=== PATIENT | female | born 1965 | race African-American/Black ===

== ENCOUNTER 2018-10-15 17:57 | Inpatient (IN) | payer MEDICARE ==
[2018-10-15 18:13] VITALS: BMI 27.8
--- NOTE | 2018-10-15 19:49 | PDOC ---
History of Present Illness - General Chief Complaint: Nausea/Vomiting Stated Complaint: Nausea Time Seen by Provider: 10/15/18 19:27 History Source: Patient Exam Limitations: No Limitations - History of Present Illness Initial Comments: HPI: 52 y/o female presenting to [facility] ER complaining of bilateral frontal headache and nausea/vomiting since approx. 10 am this morning. Pt states the headache has progressively worsened throughout the day. Endorses blurry vision. Vomited 4 times today; described as nonbloody, nonbilious. Able to drink water. No trouble walking. No history of similar symptoms. Denies trauma. Is concerned the symptoms are related to the glass of wine she drank yesterday. Denies daily drinking. PCP: Does not follow with PCP. Medical Hx: - Pt denies past medical history. Denies prescription medications. Surgical Hx: - Pt denies past surgical history. Past History - Past Medical History Allergies/Adverse Reactions: Allergies Allergy/AdvReac Type Severity Reaction Status Date / Time No Known Allergies Allergy Verified 10/15/18 21:22 Home Medications: Ambulatory Orders NK [No Known Home Medication] 10/15/18 COPD: No Dementia: No HTN: No - Immunization History Immunization Up to Date: No - Suicide/Smoking/Psychosocial Hx Smoking History: Never smoked Have you smoked in the past 12 months: No Information on smoking cessation initiated: No Hx Alcohol Use: No Drug/Substance Use Hx: No Review of Systems - Review of Systems Able to Perform ROS?: Yes Comments:: In addition to that documented in the HPI above, the additional ROS was obtained : Constitutional: Denies fevers or chills Eyes: Endorses vision changes (blurry vision) ENMT: Denies sore throat CV: Denies chest pain Resp: Denies SOB GI: Endorses vomiting. Denies diarrhea : Denies painful urination MSK: Denies recent trauma Skin: Denies new rashes Neuro: Denies new numbness or tingling or weakness Endocrine: Denies polyuria Heme: Denies bleeding or bruising *Physical Exam - Vital Signs Last Vital Signs Temp Pulse Resp BP Pulse Ox 98.4 F 89 16 171/84 H 99 10/15/18 18:09 10/15/18 18:09 10/15/18 18:09 10/15/18 18:09 10/15/18 18:09 - Physical Exam Comments: Constitutional: Well-developed, well-nourished, obese female in no acute distress or obvious discomfort. Found sitting upright on hospital chair. Alert and oriented x4. Answered all questions appropriately and completely. Speech was non-labored, non-pressured. Head: Normocephalic. No obvious external signs of trauma. Eyes: Pupils 3mm and PERRL bilaterally. EOMI. Sclerae white. Conjunctiva moist and not injected. EARS: Hearing grossly intact. NOSE: No nasal discharge. THROAT: Oral cavity and pharynx normal. No inflammation, swelling, exudate, or lesions. Neck: Supple, trachea is midline. No midline tenderness. Cardiovascular: Regular rate and regular rhythm. No murmur, rubs, clicks, or gallops. Peripheral pulses: Radial pulses full. Respiratory: Breathing unlabored. Equal chest rise and fall. Clear to auscultation bilaterally. No stridor, no wheezing, no rhonchi. Gastrointestinal: abdomen is soft, non-tender, non-distended. Neuro: Alert and oriented. Moving all four extremities spontaneously. No focal deficits. Cranial nerves intact. Sensation to all four extremities intact. Upper and lower extremities: proximal and distal strength 5/5. Head Field Hockey Coach strength 5/ 5 - equal and symmetric. Plantar flexion and dorsiflexion 5/5. Intact rapid alternating movements, finger to nose, and heel to ackerman. Gait normal. Skin: Warm, dry, and intact. Psych: Affect: appropriate. Mood: normal. Moderate Sedation - Procedure Monitoring Vital Signs: Procedure Monitoring Vital Signs Temperature 98.4 F 10/15/18 18:09 Pulse Rate 89 10/15/18 18:09 Respiratory Rate 16 10/15/18 18:09 Blood Pressure 171/84 H 10/15/18 18:09 O2 Sat by Pulse Oximetry (%) 99 10/15/18 18:09 ED Treatment Course - LABORATORY CBC & Chemistry Diagram: 10/15/18 20:16 10/15/18 20:16 Medical Decision Making - Medical Decision Making *Reviewed vital signs, nursing notes, and prior visit documentation (if available). 52 y/o female presenting with worsening frontal headache since this AM with nausea/vomiting and blurry vision. No history of similar. No trauma. Hypertensive in triage. Pt denies h/o HTN but has not followed with physician. Neurologically intact on exam. Low suspicion for acute EtOH withdrawal given reported single glass of wine and duration of symptoms. Low suspicion for intracranial lesion given normal neuro exam but given pts age and poor medical follow up will obtain head CT and basic labs. NIH Stroke Scale/Score (NIHSS) on initial interview RESULT SUMMARY: 0 points NIH Stroke Scale INPUTS: 1A: Level of consciousness > 0 = Alert; keenly responsive 1B: Ask month and age > 0 = Both questions right 1C: 'Blink eyes' & 'squeeze hands' > 0 = Performs both tasks 2: Horizontal extraocular movements > 0 = Normal 3: Visual iraheta > 0 = No visual loss 4: Facial palsy > 0 = Normal symmetry 5A: Left arm motor drift > 0 = No drift for 10 seconds 5B: Right arm motor drift > 0 = No drift for 10 seconds 6A: Left leg motor drift > 0 = No drift for 5 seconds 6B: Right leg motor drift > 0 = No drift for 5 seconds 7: Limb Ataxia > 0 = No ataxia 8: Sensation > 0 = Normal; no sensory loss 9: Language/aphasia > 0 = Normal; no aphasia 10: Dysarthria > 0 = Normal 11: Extinction/inattention > 0 = No abnormality CT of Head unremarkable for acute intracranial process. CBC unremarkable for anemia or leukocytosis. CMP unremarkable for electrolyte derangement. LFTs not elevated. BUN and Cr at baseline. eGFR >60. Glucose elevated despite pt reporting poor PO intake today. Will defer to PCP. Troponin not elevated. EKG unremarkable for ectopy. Low suspicion for ACS. Suspect HTN is a chronic and undiagnosed medical problem given age and body habitus with reported poor medical contact. Will also defer to PCP. 00:01 Pt reassessed and found to have acute change in mental status. Alert but disoriented and confused. Slowed speech with word searching. Asking similar questions in rapid succession. RN agrees mental status seems different from initial interview. Ordered UDS to further evaluate. 02:15 UDS howard negative. Pt reassess. Found to be A/Ox4. Returned to baseline. Reports she recalls being confused earlier. Denies using illicit substances or taking any medications other than those dispensed by RN. Re- evaluated by ED Attending, who reports observing the pt transition from baseline to return of slowed mentation and word searching. BP remains elevated. Will trial PO Clonidine. 02:39 Will admit for transient altered mental status with hypertension. Possible hypertensive encephalopathy versus TIA, though symptoms appear to be brief and recurrent in nature. No known HTN diagnosis per pt and no previous records available for comparison. Microblog sent to [facility] for admission. Awaiting call back. 03:05 Telephone consultation with resident Dr. Rodney. Verbally appraised of the pts HPI, ED course, and current plan of management. Will discuss case with attending and Microblog with further. 10/16/18 03:33 Pt to be admitted to telemetry by resident Dr. Rodney for attending Dr. Villagran. BP trended upward. Ordered PO Nifedipine. At mental baseline. *DC/Admit/Observation/Transfer Diagnosis at time of Disposition: Disorientation Headache Qualifiers: Headache type: unspecified Headache chronicity pattern: acute headache Intractability: not intractable Qualified Code(s): R51 - Headache Nausea & vomiting Qualifiers: Vomiting type: unspecified Vomiting Intractability: non-intractable Qualified Code(s): R11.2 - Nausea with vomiting, unspecified Altered mental status, unspecified Qualifiers: Altered mental status type: disorientation Qualified Code(s): R41.0 - Disorientation, unspecified Hypertension Qualifiers: Hypertension type: unspecified Qualified Code(s): I10 - Essential (primary) hypertension - Discharge Dispostion Condition at time of disposition: Stable Decision to Admit order: Yes - Referrals - Patient Instructions - Post Discharge Activity
--- NOTE | 2018-10-15 19:53 | PDOC ---
Attending Attestation - HPI HPI: This patient is a 52 year old female, with,no significant PMHx, who presents with b/l frontal headache, nausea, vomiting. Patient states that her headache began at 10 am and has progressively worsened over the course of the day. She states that her nausea and vomit (4x, nbnb) preceded the headache Denies taking any pain medication today. She states that she has been eating and drinking normally. She does note however that she drank a glass of wine yesterday and states that she doesn't normally drink. She also endorses blurry vision. She denies any abdominal pain, diarrhea. Denies any chest pain or shortness of breath. PCP: none <Queta Rodriguez - Last Filed: 10/15/18 20:28> - Resident Resident Name: Celso Jose - ED Attending Attestation I have performed the following: I have examined & evaluated the patient, The case was reviewed & discussed with the resident, I agree w/resident's findings & plan, Exceptions are as noted - Physicial Exam PE: 10/16/18 01:16 Well-nourished, well-developed 52-year-old female presents to the emergency department because she is concerned about her elevated blood pressure. She also states she's had nausea and vomiting and some visual changes associated with this. Head normocephalic, atraumatic. eyes- tearing,eomi Significant facial flushing noted Eyes pupils are equal and reactive to light and accommodation. Neck supple Lungs clear to auscultation bilaterally CVS regular rate and rhythm S1, S2 Abdomen protuberant, nontender. Extremities no deformities. Skin warm and dry. Neuro patient was alert but confused, appears to be word searching , poor historian . This is a change in mental status since her arrival according to the nurse and resident 10/16/18 01:23 10/16/18 01:50 10/16/18 02:34 IMP TIA,HTN urgency,TONEY plan admit to telemtry - Medical Decision Making 10/16/18 01:51 ct scan head :no acute intracranial pathology pt 's repeat temp=98.4 ekg NSR 74 bpm, inverted t waves in V1,V2,V3 pt states she has no regular physician and her concern is her blood pressure but her behavior is strange and this is a change from her initial presentation , she keeps rubbing her face, her response time to questions is very prolonged- there is concern for her taking synthetic marijuana/esctasy or some other drug of abuse our drug screen for drugs of abuse is negative 10/16/18 01:57 <Dai Zavala - Last Filed: 10/16/18 02:38>
[2018-10-15] MEDS ORDERED: ACETAMINOPHEN 500 MG TABLET (FP) PO ONE (20:11)
[2018-10-15 20:40] LABS: BASO % 0.5 % (0-2.0); EOS % 0.2 % (0-4.5); HEMATOCRIT 43.5 % (32.4-45.2); HEMOGLOBIN 14.9 GM/dL (10.7-15.3); LYMPH % 26.9 % (8-40); MCH 29.6 pg (25.7-33.7); MCHC 34.1 g/dl (32.0-36.0); MEAN CELL VOLUME 86.7 fl (80-96); MONO % 4.2 % (3.8-10.2); NEUT % 68.2 % (42.8-82.8); PLATELET COUNT 230 K/MM3 (134-434); RBC 5.02 M/mm3 (3.60-5.2); RDW 14.3 % (11.6-15.6); WHITE BLOOD COUNT 6.3 K/mm3 (4.0-10.0)
[2018-10-15] MEDS ORDERED: ACETAMINOPHEN 325 MG TABLET (FP) ONE (21:11)
[2018-10-15 21:24] LABS: ALBUMIN 4.2 g/dl (3.4-5.0); ALK PHOS 138 U/L (45-117); ANION GAP 10 MMOL/L (8-16); BILIRUBIN,TOTAL 0.4 mg/dL (0.2-1); BLOOD UREA NITROGEN 9 mg/dL (7-18); CHLORIDE 101 mmol/L (98-107); CO2 26 mmol/L (21-32); CREATININE 0.7 mg/dL (0.55-1.3); GLUCOSE,RANDOM 177 mg/dL (74-106); POTASSIUM 3.8 mmol/L (3.5-5.1); SGOT/AST 27 U/L (15-37); SGPT/ALT 47 U/L (13-61); SODIUM 137 mmol/L (136-145); TOT PROT 8.2 g/dl (6.4-8.2)
[2018-10-16] MEDS ORDERED: LABETALOL HCL 5 MG/1 ML (100MG/20 ML VIAL) IVPUSH ONE (00:16)
[2018-10-16 00:43] LABS: COCAINE, UR NEGATIVE ng/ml (CUTOFF=300); METHADONE, UR NEGATIVE ng/ml (CUTOFF=300); OPIATES, URI NEGATIVE ng/ml (CUTOFF=300); PHENCYCLIDINE,URINE NEGATIVE ng/ml (CUTOFF=25); URINE AMPHETAMINES NEGATIVE ng/ml (CUTOFF=500); URINE BARBITURATES NEGATIVE ng/ml (CUTOFF=200); URINE BENZODIAZEPINES NEGATIVE ng/ml (CUTOFF=200)
[2018-10-16] MEDS ORDERED: hydrALAZINE HCL 20 MG/ML VIAL IVPUSH ONE ×3 (00:53→04:58)
[2018-10-16] MEDS ORDERED: hydrALAZINE HCL 20 MG/ML VIAL ONE (01:09)
[2018-10-16] MEDS ORDERED: cloNIDine HCL 0.1 MG TABLET PO ONE (02:37)
[2018-10-16] MEDS ORDERED: cloNIDine HCL 0.1 MG TABLET ONE (02:40)
[2018-10-16] MEDS ORDERED: dilTIAZem HCL 30 MG TABLET (FP) PO ONE (03:26)
[2018-10-16] MEDS ORDERED: NIFEdipine 10 MG CAPSULE (FP) PO STA (03:36)
--- NOTE | 2018-10-16 04:45 | HP ---
CHIEF COMPLAINT: Headache + Vomiting PCP: None HISTORY OF PRESENT ILLNESS: 52 y/o F with no significant PMHx presents to the ED with Headache. Patient moved to [place] for work approx. 4-5 months ago from [place]. The last time she saw a physician was approx. 6-7 months ago and she has not established with anyone since moving; At that time she says her BP was normal. Last night, patient drank 1 glass of Red wine. This morning, patient woke due to nausea accompanied by 5 episodes of NBNB Vomiting. After the 3rd episode, patient began to feel a constant b/l Frontal headache. She has not eaten anything since waking. This is the first time she has experienced these symptoms. Denies any recent falls, medication changes, travel or new pets. Patient was born in [place] , has not visited in many years and says she is up to date on all vaccines. Denies any fevers, chills, chest pain, SOB, diarrhea, constipation, dysuria, hematuria. Of note, As per ED notes, patient became very confused, experience blurry vision and difficulty with word finding. During my interview, She experienced mild difficulty with word finding however the confusion and blurry vision have resolved. ER course was notable for: (1) Head CT, UTox (2) Labetalol 5mg IVP, Hydralazine 5mg IVP (3) Clonodine 0.1mg PO, Procardia 10mg PO Recent Travel: Denies PAST MEDICAL HISTORY: Denies PAST SURGICAL HISTORY: Left shoulder surgery Social History: Smoking: Denies Alcohol: Occasionally Drugs: Denies Occupation: Home health aide Ambulation: Without assistance Residence: with Roomate Family History: Denies Allergies No Known Allergies Allergy (Verified 10/15/18 21:22) HOME MEDICATIONS: Home Medications Medication Instructions Recorded NK [No Known Home Medication] 10/15/18 REVIEW OF SYSTEMS As per HPI PHYSICAL EXAMINATION Vital Signs - 24 hr 10/15/18 10/16/18 10/16/18 18:09 00:45 01:32 Temperature 98.4 F Pulse Rate 89 Pulse Rate [ 76 75 Apical] Respiratory 16 18 18 Rate Blood Pressure 171/84 H Blood Pressure 187/85 H 182/82 H [Left Arm] O2 Sat by Pulse 99 99 99 Oximetry (%) 10/16/18 10/16/18 10/16/18 01:44 02:30 03:17 Temperature 98.7 F Pulse Rate Pulse Rate [ 81 86 82 Apical] Respiratory 20 18 20 Rate Blood Pressure Blood Pressure 187/85 H 164/82 186/93 H [Left Arm] O2 Sat by Pulse 100 99 100 Oximetry (%) 10/16/18 03:30 Temperature Pulse Rate Pulse Rate [ 85 Apical] Respiratory 22 H Rate Blood Pressure Blood Pressure 174/80 H [Left Arm] O2 Sat by Pulse 100 Oximetry (%) GENERAL: A&Ox3, NAD HEAD: NCAT EYES: PERRL, EOMI, conjunctiva injected EARS, NOSE, THROAT: Oropharynx clear without exudates. Moist mucous membranes. NECK: Supple, No JVD LUNGS: CTA b/l, No wheezes, no crackles. HEART: Regular rate and rhythm, normal S1 and S2 without murmur ABDOMEN: Obese, Soft, nontender, not distended, + bowel sounds, no guarding, No abdominal bruits appreciated MUSCULOSKELETAL: No CVA tenderness. EXTREMITIES: 2+ pulses, No peripheral edema. NEUROLOGICAL: Cranial nerves II-XII intact. Clear speech with mild difficulty with word finding. Gross sensation intact throughout. 5/5 Muscle strength throughout. Able to perform Heel to ackerman, finger to nose, and rapid hand movements. NIHSS 0 SKIN: Warm, dry, Redness over Buccal areas b/l Laboratory Results - last 24 hr 10/15/18 10/15/18 10/15/18 20:16 20:16 20:16 WBC 6.3 RBC 5.02 Hgb 14.9 Hct 43.5 MCV 86.7 MCH 29.6 MCHC 34.1 RDW 14.3 Plt Count 230 MPV 10.0 Absolute Neuts (auto) 4.3 Neutrophils % 68.2 Lymphocytes % 26.9 Monocytes % 4.2 Eosinophils % 0.2 Basophils % 0.5 Nucleated RBC % 0 Sodium 137 Potassium 3.8 Chloride 101 Carbon Dioxide 26 Anion Gap 10 BUN 9 Creatinine 0.7 Creat Clearance w eGFR > 60 Random Glucose 177 H Calcium 9.0 Total Bilirubin 0.4 AST 27 ALT 47 Alkaline Phosphatase 138 H Troponin I < 0.02 Total Protein 8.2 Albumin 4.2 Opiates Screen Methadone Screen Barbiturate Screen Phencyclidine Screen Ur Amphetamines Screen MDMA (Ecstasy) Screen Benzodiazepines Screen Cocaine Screen U Marijuana (THC) Screen Alcohol, Quantitative 10/15/18 10/16/18 21:50 00:05 WBC RBC Hgb Hct MCV MCH MCHC RDW Plt Count MPV Absolute Neuts (auto) Neutrophils % Lymphocytes % Monocytes % Eosinophils % Basophils % Nucleated RBC % Sodium Potassium Chloride Carbon Dioxide Anion Gap BUN Creatinine Creat Clearance w eGFR Random Glucose Calcium Total Bilirubin AST ALT Alkaline Phosphatase Troponin I Total Protein Albumin Opiates Screen Negative Methadone Screen Negative Barbiturate Screen Negative Phencyclidine Screen Negative Ur Amphetamines Screen Negative MDMA (Ecstasy) Screen Negative Benzodiazepines Screen Negative Cocaine Screen Negative U Marijuana (THC) Screen Negative Alcohol, Quantitative < 3.0 ASSESSMENT/PLAN: 52 y/o F with no significant PMHx presents to the ED with Headache after vomiting and found to have elevated BP #Hypertensive Emergency -BP has reached 187/85 accompanied by Vomiting, Later found to have transient confusion -EKG: NSR with Sinus Arrhythmia, VR 74, QTc 441, No KATHY/STD on my read -Head CT: Normal CT, No acute Intracranial pathology -UTox negative -Given Labetalol 5mg, Hydralazine 5mg, Clonodine 0.1mg, Procardia 10mg in ED -Hydralazine 10mg and Norvasc 5mg Now -Hydralazine 10mg PRN for SBP >160 -Start Lisinopril 20mg Daily -ECHO pending -Monitor on Tele #AMS -Likely due to elevated BP, NIHSS 0 -Check RPR, B12, ESR, CRP, TSH -Neurology (Dr. Metzger) Consulted -Seizure precautions -Neurochecks #Buccal Skin Flushing -Unclear Etiology, Patient says it occurs whenever she rubs excessively -Will check ESR, CRP, VERNA, RF for Possible SLE #Elevated Blood Glucose -177 on CMP; Pt denies hx of DM -A1c pending #FEN -PO Fluids -Lytes WNL -Sodium Controlled Diet #PPx -DVT: Lovenox Dispo: Tele-Obs Visit type - Emergency Visit Emergency Visit: Yes ED Registration Date: 10/16/18 Care time: The patient presented to the Emergency Department on the above date and was hospitalized for further evaluation of their emergent condition. - New Patient This patient is new to me today: Yes Date on this admission: 10/17/18 - Critical Care Critical Care patient: No
[2018-10-16] MEDS ORDERED: hydrALAZINE HCL 20 MG/ML VIAL IVPUSH PRN ×2 (04:58→14:50)
[2018-10-16] MEDS ORDERED: amLODIPine BESYLATE 5 MG TABLET (FP) PO ONE (05:01)
[2018-10-16] MEDS ORDERED: amLODIPine BESYLATE 5 MG TABLET (FP) ONE (05:20)
--- NOTE | 2018-10-16 05:27 | PN ---
Teaching Attending Note Name of Resident: Eladio Rodney ATTENDING PHYSICIAN STATEMENT I saw and evaluated the patient. I reviewed the resident's note and discussed the case with the resident. I agree with the resident's findings and plan as documented. SUBJECTIVE: Seen and examined; please see resident note for further details. She is a 52 y/ o AAF with poor medical followup; no documented PMH, PSH, no PCP on file. No Rx medications documented per ER note. She presents for high BP, nausea, and some visual changes. She is concerned regarding her BP. She was trending in the 180s throughout the night in the ER. She was set to be discharged earlier in the evening but then concerns arose regarding word finding difficulties, etc. Concern was outlined that this could be a hypertensive urgency or a stroke. CT head was negative, toxicology unremarkable. [place] to have 'word finding' difficulties and being confused; patient admits to transient confusion. She got in the ER 10 of hydralazine, .1 clonidine, and 10 PO nifedipine. Gave her additional 10 hydralazine when we accepted admission as BP still 180s. She wasn't on home BP meds. She was having clear speech but is slow to respond with some mild word finding difficulty and she thought she was at [facility]. She speaks with an accent but tells me that urdu is her first language. She will be monitored on the floor; BP will be controlled and we will consider neuro consult. NIH 0 when I saw her in the ER. 10 sys ROS done and negative aside from HPI PMH and PSH reviewed FH asked and noncontributory Socially denies alcohol or drug abuse Medications reviewed OBJECTIVE: VS, labs, imaging reviewed NAD, AAO, resting in bed. Thought she was at [facility] All 4 ext 5/5 strength, sensorium intact, normal reflexes. Negative cerebellar signs. Some of what looks like word finding issues leading to delay in response noted. PERRLA, EOMI. No tongue deviation. Normal muscle tone. RRR s1/2 no mgr; aric in 180s SBP Lungs CTAB w/ sym exp NT ND +BS Normal mood, blunted affect Labs show normal CBC, unremarkable chemistry aside from mildly elevated alk phos at 138 and glucose of 177. Negative troponin, negative utox, negative EtOH CT head without any acute findings EKG reviewed Tele reviewed ASSESSMENT AND PLAN: Mrs. Lincoln presents with hypertensive urgency, headache, visual changes. She had some apparent word-finding difficulty in the ER. Her DC from the ER was cancelled and we were called to eval her for potential hypertensive encephalopathy indicated by the aforementioned neuro changes. CT negative; NIHSS 0 on admit to ER per documentation and our NIHSS was 0 as well when formally assessed, though she did have some intermittent word finding issues and transient confusion that resolved. The findings were when her BP was elevated. We will obviously have high index of suspicion for other etiologies; plan to lower BP and see if this improves her sx; if the sx improve with lowering BP they were 2/2 HTN encephalopathy. If not consider other issues involving CVA, other causes TONEY and visual changes (giant cell, etc). Either way it is imperitive neuro is consulted and the night residents have contacted the service. 1) Hypertensive urgency -Could be emergency if the headachea/visual changes, etc. attributable -Monitor on tele; PRN hydralazine to keep 140-160 SBP in first 24 hours. Starting PO Lisinopril 10 PO QD now and Amlodipine 5 PO QD now. -Monitor symptoms; investigate other cause of the aforementioned. If it is attributable this is a emergency. If unable to control pressure move to drip, but only got 10 hydralazine and 10 nifedipine and .1 clonidine in the ER so will be more agressive. Giving additional 10 hydralazine now and will repeat 40 minutes after if aric not improved 2) Headache, visual changes, nausea, word finding issues -Control BP which will help us elucidate if related to #1 -Neuro consult if sx persist despite improved BP control. NIH zero now. Does have good best language able to describe pictures, repeat, follow commands. -Check ESR/CRP (not classic for TA but want to r/o any catastrophic issues). Check B12, RPR, TSH. -Neuro checks, seizure precautions. Will await to see how sx persist and if so further imaging will be needed but should be deferred to security and privacy consultant preference 3) Hyperglycemia -Check A1c, SSI if needed 4) Obesity -Sales/Marketing when clinically appropriate FENA -PO fluids -PRN replete -Low salt -As tolerated; fall precautions Full Code
[2018-10-16] MEDS ORDERED: LISINOPRIL 20 MG TABLET (FP) PO SCH (10:00)
[2018-10-16] MEDS ORDERED: ENOXAPARIN NA (PORCINE) 40 MG/0.4 ML DISP.SYRIN SQ SCH (10:00)
--- NOTE | 2018-10-16 10:01 | EKG ---
Test Reason : Blood Pressure : / mmHG Vent. Rate : 074 BPM Atrial Rate : 074 BPM P-R Int : 144 ms QRS Dur : 082 ms QT Int : 398 ms P-R-T Axes : 050 028 066 degrees QTc Int : 441 ms NORMAL SINUS RHYTHM WITH SINUS ARRHYTHMIA NONSPECIFIC T WAVE ABNORMALITY ABNORMAL ECG NO PREVIOUS ECGS AVAILABLE Confirmed by Zac Black MD ([id number]) on 10/16/2018 10:01:13 AM Referred By: Confirmed By:Zac Black MD
[2018-10-16 10:39] LABS: BASO % 0.5 % (0-2.0); EOS % 0.1 % (0-4.5); HEMATOCRIT 40.7 % (32.4-45.2); HEMOGLOBIN 14.2 GM/dL (10.7-15.3); LYMPH % 18.8 % (8-40); MCH 30.2 pg (25.7-33.7); MCHC 34.8 g/dl (32.0-36.0); MEAN CELL VOLUME 86.7 fl (80-96); MEAN PLT VOLUME 10.2 fl (7.5-11.1); MONO % 5.3 % (3.8-10.2); NEUT % 75.3 % (42.8-82.8); PLATELET COUNT 249 K/MM3 (134-434); RDW 14.3 % (11.6-15.6); WHITE BLOOD COUNT 6.7 K/mm3 (4.0-10.0)
--- NOTE | 2018-10-16 10:41 | ECHO ---
Name: MALOU WARREN Exam:Adult Echocardiogram Study Date: 10/16/2018 08:48 AM Age: 52 yrs Reason For Study: LV DYSFUNCTION Height: 71 in Weight: 200 lb BSA: 2.1 m2 MMode/2D Measurements & Calculations IVSd: 0.97 cm Ao root diam: 3.0 cm LVIDd: 4.4 cm LA dimension: 2.9 cm LVIDs: 3.1 cm LVPWd: 0.85 cm EDV(Teich): 86.9 ml ESV(Teich): 37.9 ml Doppler Measurements & Calculations MV E max augie: 60.7 cm/sec Ao V2 max: 170.5 cm/sec MV A max augie: 78.5 cm/sec Ao max P.6 mmHg MV E/A: 0.77 MV dec time: 0.23 sec LV V1 max P.0 mmHg Med Peak E' Augie: 6.1 cm/sec LV V1 max: 86.4 cm/sec Med E/e': 9.9 Lat Peak E' Augie: 4.0 cm/sec Lat E/e': 15.3 Procedure A complete two-dimensional transthoracic echocardiogram was performed (2D, M-mode, Doppler and color flow Doppler). The apical views were difficult to obtain and are suboptimal in quality. Left Ventricle The left ventricular size, thickness and function are normal. Ejection Fraction = 65%. E/A reversal c onsistent with but not diagnostic of poor LV compliance. The left ventricular wall motion is normal. Right Ventricle The right ventricle is normal in size and function. Atria Normal left and right atrial size and function. Mitral Valve The mitral valve is not well visualized. There is mild mitral regurgitation. Tricuspid Valve The tricuspid valve is normal in structure and function. There was insufficient TR detected to calcul ate RV systolic pressure. Aortic Valve There is mild aortic sclerosis.;. No aortic regurgitation is present. Pulmonic Valve The pulmonic valve is normal in structure and function. Great Vessels The aortic root is normal size. Normal aortic arch, descending and ascending aorta. Pericardium/Pleura There is no pericardial effusion. There is no pleural effusion. Interpretation Summary The left ventricular size, thickness and function are normal Ejection Fraction = 65%. There is mild mitral regurgitation. There is mild aortic sclerosis.; MD Zac Black 10/16/2018 10:40 AM
[2018-10-16] MEDS ORDERED: PT OWN MED DRAWER 7, Y5N ONE ×3 (11:15→15:35)
[2018-10-16 11:34] LABS: ALBUMIN 3.9 g/dl (3.4-5.0); ALK PHOS 126 U/L (45-117); ANION GAP 8 MMOL/L (8-16); BILIRUBIN,TOTAL 0.6 mg/dL (0.2-1); BLOOD UREA NITROGEN 12 mg/dL (7-18); CALCIUM 8.9 mg/dL (8.5-10.1); CHLORIDE 101 mmol/L (98-107); CHOLESTEROL 207 mg/dL (50-200); CO2 25 mmol/L (21-32); CREATININE 0.8 mg/dL (0.55-1.3); GLUCOSE,RANDOM 218 mg/dL (74-106); HDL CHOLESTEROL 46 mg/dL (40-60); MAGNESIUM 2.1 mg/dL (1.8-2.4); PHOSPHOROUS 3.2 mg/dL (2.5-4.9); POTASSIUM 3.8 mmol/L (3.5-5.1); SGOT/AST 31 U/L (15-37); SGPT/ALT 49 U/L (13-61); SODIUM 134 mmol/L (136-145); TOT PROT 7.7 g/dl (6.4-8.2); TRIGLYCERIDES 119 mg/dL (0-150)
[2018-10-16] MEDS ORDERED: ATORVASTATIN CA 80 MG TABLET (FP) PO ONE (13:51)
[2018-10-16] MEDS ORDERED: ASPIRIN 81 MG CHEWABLE TABLETS ONE (13:53)
[2018-10-16] MEDS ORDERED: ASPIRIN COATED 81 MG TABLET.EC PO SCH (14:00)
[2018-10-16 15:30] VITALS: BP 167/79; PULSE 96; TEMP 98.8
--- NOTE | 2018-10-16 16:12 | PN ---
Teaching Attending Note Name of Resident: Dung Killian ATTENDING PHYSICIAN STATEMENT I saw and evaluated the patient. I reviewed the resident's note and discussed the case with the resident. I agree with the resident's findings and plan as documented. SUBJECTIVE: OBJECTIVE: Vital Signs Period Temp Pulse Resp BP Sys/Crabtree Pulse Ox Last 24 Hr 98.4 F-98.9 F 75-102 16-22 128-187/46-93 98-100 Laboratory Results - last 24 hr 10/15/18 10/15/18 10/15/18 20:16 20:16 20:16 WBC 6.3 RBC 5.02 Hgb 14.9 Hct 43.5 MCV 86.7 MCH 29.6 MCHC 34.1 RDW 14.3 Plt Count 230 MPV 10.0 Absolute Neuts (auto) 4.3 Neutrophils % 68.2 Lymphocytes % 26.9 Monocytes % 4.2 Eosinophils % 0.2 Basophils % 0.5 Nucleated RBC % 0 ESR Sodium 137 Potassium 3.8 Chloride 101 Carbon Dioxide 26 Anion Gap 10 BUN 9 Creatinine 0.7 Creat Clearance w eGFR > 60 POC Glucometer Random Glucose 177 H Hemoglobin A1c % Calcium 9.0 Phosphorus Magnesium Total Bilirubin 0.4 AST 27 ALT 47 Alkaline Phosphatase 138 H Troponin I < 0.02 C-Reactive Protein Total Protein 8.2 Albumin 4.2 Triglycerides Cholesterol Total LDL Cholesterol HDL Cholesterol Vitamin B12 TSH Opiates Screen Methadone Screen Barbiturate Screen Phencyclidine Screen Ur Amphetamines Screen MDMA (Ecstasy) Screen Benzodiazepines Screen Cocaine Screen U Marijuana (THC) Screen Alcohol, Quantitative Rheumatoid Factor RPR Titer 10/15/18 10/16/18 10/16/18 21:50 00:05 10:20 WBC 6.7 RBC 4.70 Hgb 14.2 Hct 40.7 MCV 86.7 MCH 30.2 MCHC 34.8 RDW 14.3 Plt Count 249 MPV 10.2 Absolute Neuts (auto) 5.1 Neutrophils % 75.3 Lymphocytes % 18.8 D Monocytes % 5.3 Eosinophils % 0.1 Basophils % 0.5 Nucleated RBC % 0 ESR Sodium Potassium Chloride Carbon Dioxide Anion Gap BUN Creatinine Creat Clearance w eGFR POC Glucometer Random Glucose Hemoglobin A1c % Calcium Phosphorus Magnesium Total Bilirubin AST ALT Alkaline Phosphatase Troponin I C-Reactive Protein Total Protein Albumin Triglycerides Cholesterol Total LDL Cholesterol HDL Cholesterol Vitamin B12 TSH Opiates Screen Negative Methadone Screen Negative Barbiturate Screen Negative Phencyclidine Screen Negative Ur Amphetamines Screen Negative MDMA (Ecstasy) Screen Negative Benzodiazepines Screen Negative Cocaine Screen Negative U Marijuana (THC) Screen Negative Alcohol, Quantitative < 3.0 Rheumatoid Factor RPR Titer 10/16/18 10/16/18 10/16/18 10:20 10:20 10:20 WBC RBC Hgb Hct MCV MCH MCHC RDW Plt Count MPV Absolute Neuts (auto) Neutrophils % Lymphocytes % Monocytes % Eosinophils % Basophils % Nucleated RBC % ESR Sodium 134 L Potassium 3.8 Chloride 101 Carbon Dioxide 25 Anion Gap 8 BUN 12 Creatinine 0.8 Creat Clearance w eGFR > 60 POC Glucometer Random Glucose 218 H Hemoglobin A1c % 8.8 H Calcium 8.9 Phosphorus 3.2 Magnesium 2.1 Total Bilirubin 0.6 AST 31 ALT 49 Alkaline Phosphatase 126 H Troponin I C-Reactive Protein 0.7 H Total Protein 7.7 Albumin 3.9 Triglycerides 119 Cholesterol 207 H Total LDL Cholesterol 133 H HDL Cholesterol 46 Vitamin B12 1166 H TSH 1.30 Opiates Screen Methadone Screen Barbiturate Screen Phencyclidine Screen Ur Amphetamines Screen MDMA (Ecstasy) Screen Benzodiazepines Screen Cocaine Screen U Marijuana (THC) Screen Alcohol, Quantitative Rheumatoid Factor < 10.0 RPR Titer 10/16/18 10/16/18 10/16/18 10:20 10:20 12:09 WBC RBC Hgb Hct MCV MCH MCHC RDW Plt Count MPV Absolute Neuts (auto) Neutrophils % Lymphocytes % Monocytes % Eosinophils % Basophils % Nucleated RBC % ESR 7 Sodium Potassium Chloride Carbon Dioxide Anion Gap BUN Creatinine Creat Clearance w eGFR POC Glucometer [phone] Random Glucose Hemoglobin A1c % Calcium Phosphorus Magnesium Total Bilirubin AST ALT Alkaline Phosphatase Troponin I C-Reactive Protein Total Protein Albumin Triglycerides Cholesterol Total LDL Cholesterol HDL Cholesterol Vitamin B12 TSH Opiates Screen Methadone Screen Barbiturate Screen Phencyclidine Screen Ur Amphetamines Screen MDMA (Ecstasy) Screen Benzodiazepines Screen Cocaine Screen U Marijuana (THC) Screen Alcohol, Quantitative Rheumatoid Factor RPR Titer Nonreactive Current Medications Generic Name Dose Route Start Last Admin Trade Name Freq PRN Reason Stop Dose Admin Aspirin 81 mg 10/16/18 14:00 10/16/18 13:55 Ecotrin - PO 81 mg DAILY [facility] Administration Atorvastatin Calcium 80 mg 10/17/18 22:00 Lipitor - PO HS [facility] Enoxaparin Sodium 40 mg 10/16/18 10:00 10/16/18 11:15 Lovenox - SQ 40 mg DAILY EMELI Administration Hydralazine HCl 10 mg 10/16/18 14:50 Apresoline Injection - IVPUSH Q6H PRN HYPERTENSION Lisinopril 20 mg 10/16/18 10:00 10/16/18 11:15 Prinivil PO 20 mg DAILY EMELI Administration ASSESSMENT AND PLAN: This is a 52 year old woman with no significant medical history of who presented to the ED with headache and vomiting. 1. Acute left MCA ischemic CVA 2. Hypertensive urgency -Could be emergency if the headachea/visual changes, etc. attributable -Monitor on tele; PRN hydralazine to keep 140-160 SBP in first 24 hours. Starting PO Lisinopril 10 PO QD now and Amlodipine 5 PO QD now. -Monitor symptoms; investigate other cause of the aforementioned. If it is attributable this is a emergency. If unable to control pressure move to drip, but only got 10 hydralazine and 10 nifedipine and .1 clonidine in the ER so will be more agressive. Giving additional 10 hydralazine now and will repeat 40 minutes after if aric not improved 3. Hyperglycemia -Check A1c, SSI if needed 4. 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
--- NOTE | 2018-10-16 16:50 | DS ---
Physical Exam: SUBJECTIVE: Patient seen and examined this AM. States her headache has improved. Upon returning on rounds, pt noted with new onset Right arm weakness and facial droop. OBJECTIVE: Vital Signs Period Temp Pulse Resp BP Sys/Crabtree Pulse Ox Last 24 Hr 98.4 F-98.9 F 75-102 16-22 128-187/46-93 98-100 PHYSICAL EXAM Mild distress, oriented to time and person but not place Dysarthria and expressive aphasia PERRLA, EOMI Right sided facial weakness and droop RUE 1/5 strength, RLE 4/5 strength Heart regular rate and rythm Lungs clear to auscultation Abdomen soft nontender LABS Laboratory Results - last 24 hr 10/15/18 10/15/18 10/15/18 20:16 20:16 20:16 WBC 6.3 RBC 5.02 Hgb 14.9 Hct 43.5 MCV 86.7 MCH 29.6 MCHC 34.1 RDW 14.3 Plt Count 230 MPV 10.0 Absolute Neuts (auto) 4.3 Neutrophils % 68.2 Lymphocytes % 26.9 Monocytes % 4.2 Eosinophils % 0.2 Basophils % 0.5 Nucleated RBC % 0 ESR Sodium 137 Potassium 3.8 Chloride 101 Carbon Dioxide 26 Anion Gap 10 BUN 9 Creatinine 0.7 Creat Clearance w eGFR > 60 POC Glucometer Random Glucose 177 H Hemoglobin A1c % Calcium 9.0 Phosphorus Magnesium Total Bilirubin 0.4 AST 27 ALT 47 Alkaline Phosphatase 138 H Troponin I < 0.02 C-Reactive Protein Total Protein 8.2 Albumin 4.2 Triglycerides Cholesterol Total LDL Cholesterol HDL Cholesterol Vitamin B12 TSH Opiates Screen Methadone Screen Barbiturate Screen Phencyclidine Screen Ur Amphetamines Screen MDMA (Ecstasy) Screen Benzodiazepines Screen Cocaine Screen U Marijuana (THC) Screen Alcohol, Quantitative Rheumatoid Factor RPR Titer 10/15/18 10/16/18 10/16/18 21:50 00:05 10:20 WBC 6.7 RBC 4.70 Hgb 14.2 Hct 40.7 MCV 86.7 MCH 30.2 MCHC 34.8 RDW 14.3 Plt Count 249 MPV 10.2 Absolute Neuts (auto) 5.1 Neutrophils % 75.3 Lymphocytes % 18.8 D Monocytes % 5.3 Eosinophils % 0.1 Basophils % 0.5 Nucleated RBC % 0 ESR Sodium Potassium Chloride Carbon Dioxide Anion Gap BUN Creatinine Creat Clearance w eGFR POC Glucometer Random Glucose Hemoglobin A1c % Calcium Phosphorus Magnesium Total Bilirubin AST ALT Alkaline Phosphatase Troponin I C-Reactive Protein Total Protein Albumin Triglycerides Cholesterol Total LDL Cholesterol HDL Cholesterol Vitamin B12 TSH Opiates Screen Negative Methadone Screen Negative Barbiturate Screen Negative Phencyclidine Screen Negative Ur Amphetamines Screen Negative MDMA (Ecstasy) Screen Negative Benzodiazepines Screen Negative Cocaine Screen Negative U Marijuana (THC) Screen Negative Alcohol, Quantitative < 3.0 Rheumatoid Factor RPR Titer 10/16/18 10/16/18 10/16/18 10:20 10:20 10:20 WBC RBC Hgb Hct MCV MCH MCHC RDW Plt Count MPV Absolute Neuts (auto) Neutrophils % Lymphocytes % Monocytes % Eosinophils % Basophils % Nucleated RBC % ESR Sodium 134 L Potassium 3.8 Chloride 101 Carbon Dioxide 25 Anion Gap 8 BUN 12 Creatinine 0.8 Creat Clearance w eGFR > 60 POC Glucometer Random Glucose 218 H Hemoglobin A1c % 8.8 H Calcium 8.9 Phosphorus 3.2 Magnesium 2.1 Total Bilirubin 0.6 AST 31 ALT 49 Alkaline Phosphatase 126 H Troponin I C-Reactive Protein 0.7 H Total Protein 7.7 Albumin 3.9 Triglycerides 119 Cholesterol 207 H Total LDL Cholesterol 133 H HDL Cholesterol 46 Vitamin B12 1166 H TSH 1.30 Opiates Screen Methadone Screen Barbiturate Screen Phencyclidine Screen Ur Amphetamines Screen MDMA (Ecstasy) Screen Benzodiazepines Screen Cocaine Screen U Marijuana (THC) Screen Alcohol, Quantitative Rheumatoid Factor < 10.0 RPR Titer 10/16/18 10/16/18 10/16/18 10:20 10:20 12:09 WBC RBC Hgb Hct MCV MCH MCHC RDW Plt Count MPV Absolute Neuts (auto) Neutrophils % Lymphocytes % Monocytes % Eosinophils % Basophils % Nucleated RBC % ESR 7 Sodium Potassium Chloride Carbon Dioxide Anion Gap BUN Creatinine Creat Clearance w eGFR POC Glucometer [phone] Random Glucose Hemoglobin A1c % Calcium Phosphorus Magnesium Total Bilirubin AST ALT Alkaline Phosphatase Troponin I C-Reactive Protein Total Protein Albumin Triglycerides Cholesterol Total LDL Cholesterol HDL Cholesterol Vitamin B12 TSH Opiates Screen Methadone Screen Barbiturate Screen Phencyclidine Screen Ur Amphetamines Screen MDMA (Ecstasy) Screen Benzodiazepines Screen Cocaine Screen U Marijuana (THC) Screen Alcohol, Quantitative Rheumatoid Factor RPR Titer Nonreactive HOSPITAL COURSE: Date of Admission:10/16/18 Date of Discharge: 10/16/18 HPI on Admission: 52 y/o F with no significant PMHx presents to the ED with Headache. Patient moved to [place] for work approx. 4-5 months ago from [place]. The last time she saw a physician was approx. 6-7 months ago and she has not established with anyone since moving; At that time she says her BP was normal. Last night, patient drank 1 glass of Red wine. This morning, patient woke due to nausea accompanied by 5 episodes of NBNB Vomiting. After the 3rd episode, patient began to feel a constant b/l Frontal headache. She has not eaten anything since waking. This is the first time she has experienced these symptoms. Denies any recent falls, medication changes, travel or new pets. Patient was born in [place] , has not visited in many years and says she is up to date on all vaccines. Denies any fevers, chills, chest pain, SOB, diarrhea, constipation, dysuria, hematuria. Of note, As per ED notes, patient became very confused, experience blurry vision and difficulty with word finding. During my interview, She experienced mild difficulty with word finding however the confusion and blurry vision have resolved. Hospital Course: Pt was noted to have new onset Right arm weakness with facial droop. Initial CT read as normal, repeat ordered following a fall the morning after admission was read as encephalomalacia. Discussed with radiology who recommended MRI to rule out MS, however with new weakness, CTA was performed which revealed Left sided MCA occlusion greater than 50 %. Case discussed with neurology who agreed with transfer to tertiary care center. Transfer was initiated and accepted by [facility] stroke team. Pt was transferred to [facility] for further management and possible embolectomy. Pt was outside of the tPA window as last known well was the night prior before she started having some confusion which may have been the early stages of an expressive aphasia. Minutes to complete discharge: 60 Discharge Summary Reason For Visit: DISORIENTATION, HEADACHE, AMS,N/V, HTN Current Active Problems Altered mental status, unspecified (Acute) Disorientation (Acute) Headache (Acute) Hypertension (Acute) Nausea & vomiting (Acute) Condition: Guarded - Instructions Diet, Activity, Other Instructions: You were admitted with change in mental status. You were evaluated in the morning with minimal weakness which greatly improved throughout the day. CT of the blood vessels in your brain showed a large occlusion likely causing all of your symptoms. You are being transferred to [facility] for further management and possible procedures to remove the clot. Referrals: [facility] [place] [Provider Group] Disposition: TRANSFER ACUTE CARE/OTHER HOSP - Home Medications Comprehensive Discharge Medication List: Ambulatory Orders NK [No Known Home Medication] 10/15/18 Aspirin Coated [Ecotrin -] 81 mg PO DAILY tablet.ec 10/16/18 Atorvastatin Ca [Lipitor] 80 mg PO HS tablet 10/16/18 This patient is new to me today: Yes Date on this admission: 10/16/18 Emergency Visit: Yes ED Registration Date: 10/16/18 Care time: The patient presented to the Emergency Department on the above date and was hospitalized for further evaluation of their emergent condition. Critical Care patient: Yes Total Critical Care Time (in minutes): 75 Critical Care Statement: The care of this patient involved high complexity decision making to prevent further life threatening deterioration of the patient 's condition and/or to evaluate & treat vital organ system(s) failure or risk of failure. - Discharge Referral Referred to [facility] No
--- NOTE | 2018-10-16 17:54 | CON.NEURO ---
Consult - Alcohol/Substance Use Hx Alcohol Use: No - Smoking History Smoking history: Never smoked Have you smoked in the past 12 months: No Home Medications - Allergies Allergies/Adverse Reactions: Allergies Allergy/AdvReac Type Severity Reaction Status Date / Time No Known Allergies Allergy Verified 10/15/18 21:22 - Home Medications Home Medications: Ambulatory Orders NK [No Known Home Medication] 10/15/18 Aspirin Coated [Ecotrin -] 81 mg PO DAILY tablet.ec 10/16/18 Atorvastatin Ca [Lipitor] 80 mg PO HS tablet 10/16/18 Physical Exam-Neuro Vital Signs: Vital Signs Temperature 98.8 F 10/16/18 15:28 Pulse Rate 96 H 10/16/18 15:28 Respiratory Rate 20 10/16/18 15:28 Blood Pressure 167/79 10/16/18 15:28 O2 Sat by Pulse Oximetry (%) 98 10/16/18 14:00 Labs: CBC, BMP 10/16/18 10:20 10/16/18 10:20 Assessment/Plan cc right sided hempiparesis and difficulty talking since Oct 16 morning HPI 52 year old female history of nausea, and hypertension and ? confusion admitted for hypertensive encephalopathy. Later in am , she developed right sided hemiparesis and aphasia. Alem had repeat ct and ct angio of brain and found to have left m1 blockage and was transferred to [facility] for further evaluation. Patient denies any headhace, she was seen in emergency room. PMH as above, \ PAST SURGICAL HISTORY: Left shoulder surgery Social History: Smoking: Denies Alcohol: Occasionally Drugs: Denies Occupation: Home health aide Ambulation: Without assistance Residence: with Roomate Family History: Denies Allergies No Known Allergies Allergy (Verified 10/15/18 21:22) HOME MEDICATIONS: Home Medications Medication Instructions Recorded NK [No Known Home Medication] 10/15/18 FH,ROS,SH reviwed in chart NEUROLOGICAL EXAMINATION Alert and comprenend well , able to follow command , close eye she has trouble repeating and difficulty with spontaneous speech eomi, right sided facial palsy right upper extremity grade 4 right lower extremity is grade 5- ct head showed old encephalomalacia and periventricular ischemic changes and old left parietal lobe encephalomalacia. cta - left m1 critical stenosis Assessment : Left mca stroke with aphasia and right sided hemiparesis, with left m1 occlusion. etiology not clear, as she do not have significant prior disease. There is no acute ischemic chagnes on ct head, likey to be candidate for thrombectomy Plan: aspirin and statin - trasnfer her to [facility] Thanking you so much Luis Felipe Metzger MD
[2018-10-16] MEDS ORDERED: ATORVASTATIN CA 80 MG TABLET (FP) PO SCH (22:00)
--- NOTE | 2018-10-17 17:12 | RAPID ---
Physical Examination Vital Signs: Vital Signs Temperature 98.8 F 10/16/18 15:28 Pulse Rate 96 H 10/16/18 15:28 Respiratory Rate 20 10/16/18 15:28 Blood Pressure 167/79 10/16/18 15:28 O2 Sat by Pulse Oximetry (%) 98 10/16/18 14:00 Findings/Remarks: Pt evaluated on rounds. Found with new right sided weakness, facial droop, and expressive aphasia. Exam Mild distress, oriented to time and person but not place Dysarthria and expressive aphasia PERRLA, EOMI Right sided facial weakness and droop RUE 1/5 strength, RLE 4/5 strength Heart regular rate and rythm Lungs clear to auscultation Abdomen soft nontender CTA revealed Left MCA occlusion greater than 50 % Initiated transfer with [facility] Stroke team for possible embolectomy Labs: CBC, BMP 10/16/18 10:20 10/16/18 10:20 NIH Stroke Scale - Last Known Well Date/Time & Onset Date Last Known Well: 10/15/18 Time Last Known Well: 20:00 - Initial Evaluation Level of consciousness: Not alert, but arousable with minimal stimulation Ask patient the month and their age: Answers one correctly Ask patient to open & close eyes; make fist and let go: Obeys one correctly Best gaze (horizontal eye movement): Normal Visual field testing: No visual field loss Facial paresis (Show teeth/raise eyebrows/close eyes tight): Partial paralysis ( total or near paralysis of lower face) Motor Function: Left Arm: Normal Motor Function: Right Arm: No movement Motor Function: Left Leg: Normal (extends leg 30 degrees for 5 seconds without drift) Motor Function: Right Leg: Some effort against gravity Limb Ataxia: No ataxia Sensory(Use pinprick test arms,legs,trunk,face/side to side): Normal Best language (Describe picture, name items, read sentences): Severe aphasia Dysarthria (read several words): Mild to moderate slurring of words Extinction and Inattention: No abnormality - Total Score NIH Stroke Scale Score: 14 Suspected CVA - Suspected CVA MD Exam Time (Code Zimmerman Time): 13:30 CT Stroke ordered: Yes Stat "Code Zimmerman" Consult to Neurology called: Yes Last Known Well (Date): 10/15/18 Last Known Well (Time): 20:00 Symptom Discovery (Date): 10/16/18 Symptom Discovery (Time): 13:30
--- NOTE | 2018-10-17 17:25 | HOSP ---
Physical Examination Vital Signs: Vital Signs Temperature 98.8 F 10/16/18 15:28 Pulse Rate 96 H 10/16/18 15:28 Respiratory Rate 20 10/16/18 15:28 Blood Pressure 167/79 10/16/18 15:28 O2 Sat by Pulse Oximetry (%) 98 10/16/18 14:00 Labs: CBC, BMP 10/16/18 10:20 10/16/18 10:20 Hospitalist Encounter Assessment: Informed pt had an unwitnessed fall around 10 am. Pt with no complaints of pain and denies any head trauma Evaluated patient Some difficulty word finding No signs of trauma anywhere Mild weakness noted on Right side Pt without any acute pain and denies any trauma from the fall Had not received AC or DVT prophylaxis yet at that time but head CT ordered due to unwitnessed fall Visit type - Emergency Visit Emergency Visit: Yes ED Registration Date: 10/16/18 Care time: The patient presented to the Emergency Department on the above date and was hospitalized for further evaluation of their emergent condition. - New Patient This patient is new to me today: Yes Date on this admission: 10/17/18 - Critical Care Critical Care patient: No
[2018-10-17] MEDS ORDERED: ATORVASTATIN CA 80 MG TABLET (FP) PO SCH (22:00)
== END 2018-10-16 16:15 | disposition short-term general hospital (02) | DRG 45 ==
LOC: JER 17:57 → JERBED 10-16 02:34 → OBSVTOIN 10-16 16:07
PROVIDERS: ADMIT Internal Medicine; ATTEND Internal Medicine
DX: I63.442 Cerebral infarction due to embolism of left cerebellar artery (principal); I16.1 Hypertensive emergency; G81.91 Hemiplegia, unspecified affecting right dominant side; R47.01 Aphasia; R11.2 Nausea with vomiting, unspecified; R41.0 Disorientation, unspecified; R51 Headache
CPT/HCPCS: 36415; 70450-TC; 70496-TC; 70498-TC; 80053; 80061; 80307; 82607; 82962; 83036; 83721; 83735; 84100; 84443; 84484; 85025; 85651; 86038; 86140; 86431; 86593; 87086; 93005; 93010; 93306-TC; 99284-25; G0378; J0735

== ENCOUNTER 2018-11-08 18:44 | Emergency (ER) | payer SELFPAY ==
[2018-11-08 19:08] VITALS: BP 147/90; PULSE 83; BMI 45.8
[2018-11-08 19:25] VITALS: TEMP 98.2
[2018-11-08] MEDS ORDERED: LACTATED RINGERS SOLUTION 1000 ML INFUS.BAG IV ONE (19:32)
--- NOTE | 2018-11-08 20:11 | PDOC ---
History of Present Illness - General Chief Complaint: Weakness Stated Complaint: Weakness Time Seen by Provider: 11/08/18 19:30 History Source: Patient Exam Limitations: Clinical Condition - History of Present Illness Initial Comments: 11/08/18 20:06 Patient with h/o ischmic stroke dx 3 weeks ago on heparin, diabetes on metformin and elevated blood pressures present with complains of headache and dizziness which started an hour prior to arrival. Patient report sudden onset of symptoms and called EMS. Patient report blood pressure check by EMS was 200s/ 100s which improved upon arrival to ED to 149/90. Patient report improvement in TONEY now with only mild TONEY now. Denies dizziness now. Denies CP, SOB, numbing or tingling sensation. weakness in UE/LE. Denies blurred speak, numbness in face, facial drooolin or eye drooling. Denies any other symptoms. FS done by EMS was 147 Timing/Duration: 1 hour Past History - Past Medical History Allergies/Adverse Reactions: Allergies Allergy/AdvReac Type Severity Reaction Status Date / Time No Known Allergies Allergy Verified 10/15/18 21:22 Home Medications: Ambulatory Orders Aspirin Coated [Ecotrin -] 81 mg PO DAILY tablet.ec 10/16/18 Atorvastatin Ca [Lipitor] 80 mg PO HS tablet 10/16/18 Blood Sugar Diagnostic [Blood Glucose Test Strip] 1 each MC BID #100 strip 11/08 Blood-Glucose Meter [Blood Glucose Monitoring] 1 each MC BID #1 kit 11/08/18 Lancets [Accu-Chek] 1 each MC BID #100 each 11/08/18 Anemia: No Asthma: No Cancer: No Cardiac Disorders: No CVA: No COPD: No CHF: No Dementia: No Diabetes: No GI Disorders: No Disorders: No HTN: No Hypercholesterolemia: No Liver Disease: No Seizures: No Thyroid Disease: No - Surgical History Abdominal Surgery: No Appendectomy: No Cardiac Surgery: No Cholecystectomy: No Lung Surgery: No Neurologic Surgery: No Orthopedic Surgery: No - Immunization History Immunization Up to Date: No - Suicide/Smoking/Psychosocial Hx Smoking History: Unknown if ever smoked Have you smoked in the past 12 months: No Hx Alcohol Use: No Drug/Substance Use Hx: No Substance Use Type: None Hx Substance Use Treatment: No Review of Systems - Review of Systems Able to Perform ROS?: Yes Is the patient limited [place] proficient: No Constitutional: No: Malaise, Weakness HEENTM: No: Symptoms Reported, See HPI, Eye Pain, Blurred Vision, Tearing, Recent change in vision, Double Vision, Cataracts, Ear Pain, Ocular Prothesis, Ear Discharge, Nose Pain, Nose Congestion, Tinnitus, Nose Bleeding, Hearing Loss , Throat Pain, Throat Swelling, Mouth Pain, Dental Problems, Difficulty Swallowing, Mouth Swelling, Other Respiratory: No: Symptoms reported, See HPI, Cough, Orthopnea, Shortness of Breath, SOB with Exertion, SOB at Rest, Stridor, Wheezing, Productive cough, Hemoptysis, Other Cardiac (ROS): No: Symptoms Reported, See HPI, Chest Pain, Edema, Irregular Heart Rate, Lightheadedness, Palpitations, Syncope, Chest Tightness, Other ABD/GI: No: Nausea, Vomiting Neurological: Yes: See HPI, Headache, Dizziness. No: Numbness, Paresthesia, Seizure, Tingling, Tremors, Weakness, Ataxia Endocrine: Yes: Other (h/o diabetes) All Other Systems: Reviewed and Negative *Physical Exam - Vital Signs Last Vital Signs Temp Pulse Resp BP Pulse Ox 98.2 F 83 20 147/90 98 11/08/18 19:01 11/08/18 19:01 11/08/18 19:01 11/08/18 19:01 11/08/18 19:01 - Physical Exam General Appearance: Yes: Nourished, Appropriately Dressed. No: Apparent Distress HEENT: positive: EOMI, LIANNA, Normal ENT Inspection, TMs Normal, Pharynx Normal Neck: positive: Supple Respiratory/Chest: positive: Lungs Clear, Normal Breath Sounds. negative: Chest Tender, Respiratory Distress, Accessory Muscle Use Cardiovascular: positive: Regular Rhythm, Regular Rate. negative: Murmur Vascular Pulses: Carotid (R): 4+, Carotid (L): 4+, Dorsalis-Pedis (R): 4+, Doralis-Pedis (L): 4+ Gastrointestinal/Abdominal: positive: Flat, Soft, Organomegaly. negative: Tender, Pulsatile Mass Musculoskeletal: positive: Normal Inspection Extremity: positive: Normal Capillary Refill, Normal Inspection, Normal Range of Motion Neurologic: positive: polymer tester II-XII NML intact, Fully Oriented, Alert, Normal Mood/ Affect, Normal Response, Motor Strength 5/5, Finger to Nose. negative: Facial Droop, Sensory Deficit, Confused, Disoriented, Depressed Affect, Babinski Moderate Sedation - Procedure Monitoring Vital Signs: Procedure Monitoring Vital Signs Temperature 98.2 F 11/08/18 19:01 Pulse Rate 83 11/08/18 19:01 Respiratory Rate 20 11/08/18 19:01 Blood Pressure 147/90 11/08/18 19:01 O2 Sat by Pulse Oximetry (%) 98 11/08/18 19:01 ED Treatment Course - LABORATORY CBC & Chemistry Diagram: 11/08/18 20:00 11/08/18 21:24 Medical Decision Making - Medical Decision Making 11/08/18 20:13 Patient with h/o ischmic stroke dx 3 weeks ago on heparin, diabetes on metformin and elevated blood pressures present with complains of headache and dizziness which started an hour prior to arrival. Patient report sudden onset of symptoms and called EMS. Patient report blood pressure check by EMS was 200s/ 100s which improved upon arrival to ED to 149/90. Patient report improvement in TONEY now with only mild TONEY now. Denies dizziness now. Denies CP, SOB, numbing or tingling sensation. weakness in UE/LE. Denies blurred speak, numbness in face, facial drooolin or eye drooling. Denies any other symptoms. FS done by EMS was 147. Clinial exam unremarkable with normal neuro exam. no sensosry or motor deficit on exam. Blood pressure improved to 140s/90. glucose finger stick done by EMS 147. EOMI. PERRLA . CBC, cmp, pt/ptt, ua labs ordered. Cardiac profile labs ordered. EKG shows sinus rhythm. IVF with lactate ringers ordered. head CT w/o contrast ordered to r/o any intracranial bleed. Treat based on lab result. 11/08/18 20:23 11/08/18 22:[address] shows no acute intracranial bleeding. CBC, PT/PTT and chemistry labs normal. cardial profile negative. Patient up and eating in no distress and wants to go home. Patient has f/u apt with PCP in 3 days. Patient stable for discharge with PCP follow-up . 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 use Diabetes mellitus complication status: without complication Qualified Code(s): E11.9 - Type 2 diabetes mellitus without complications - Discharge Dispostion Disposition: HOME Condition at time of disposition: Stable Decision to Admit order: No - Prescriptions Prescriptions: Blood Sugar Diagnostic [Blood Glucose Test Strip] 1 each MC BID #100 strip Blood-Glucose Meter [Blood Glucose Monitoring] 1 each MC BID #1 kit Lancets [Accu-Chek] 1 each MC BID #100 each - Referrals - Patient Instructions Printed Discharge Instructions: Recommendations to Help Prevent High Blood Pressure, DI for Headache Additional Instructions: Your labwork and head CATs scan wan normal. Continue with take homes meds as prescribed. decrease salt intake to help regulate blood pressure. Use prescribed finger stick to check glucose level daily in the AM upon wake and before bed and keep log of measurement. Follow-up with primary care as scheduled in 3 days - Post Discharge Activity
[2018-11-08 20:14] LABS: BASO % 0.5 % (0-2.0); EOS % 1.8 % (0-4.5); HEMATOCRIT 41.9 % (32.4-45.2); HEMOGLOBIN 14.3 GM/dL (10.7-15.3); LYMPH % 25.5 % (8-40); MCH 30.6 pg (25.7-33.7); MCHC 34.1 g/dl (32.0-36.0); MEAN CELL VOLUME 89.7 fl (80-96); MEAN PLT VOLUME 11.2 fl (7.5-11.1); MONO % 4.3 % (3.8-10.2); NEUT % 67.9 % (42.8-82.8); PLATELET COUNT 285 K/MM3 (134-434); RBC 4.67 M/mm3 (3.60-5.2); RDW 14.7 % (11.6-15.6); WHITE BLOOD COUNT 5.8 K/mm3 (4.0-10.0)
[2018-11-08 20:17] LABS: URINE APPEARANCE CLEAR; URINE BILIRUBIN NEGATIVE (<2.0 mg/dL); URINE COLOR STRAW; URINE GLUCOSE (UA) NEGATIVE (NEGATIVE); URINE KETONE NEGATIVE (NEGATIVE); URINE LEUK ESTERASE TRACE (NEGATIVE); URINE NITRITE NEGATIVE (NEGATIVE); URINE PROTEIN NEGATIVE (NEGATIVE); URINE UROBILINOGEN NEGATIVE mg/dL (0.2-1.0)
[2018-11-08 20:19] LABS: EPI CELLS RARE /HPF (FEW); URINE HYALINE CAST 1 /lpf; URINE MUCUS RARE
[2018-11-08 20:27] LABS: INR 0.95 (0.83-1.09); PROTHROMBIN TIME (PATIENT) 11.2 SEC (9.7-13.0)
[2018-11-08 20:30] LABS: ACTIVATED PTT 32.5 SECONDS (25.2-36.5)
[2018-11-08 20:42] LABS: ALBUMIN 3.9 g/dl (3.4-5.0); ALK PHOS 136 U/L (45-117); ANION GAP 7 MMOL/L (8-16); BILIRUBIN,TOTAL 0.4 mg/dL (0.2-1); BLOOD UREA NITROGEN 12 mg/dL (7-18); CALCIUM 9.4 mg/dL (8.5-10.1); CHLORIDE 104 mmol/L (98-107); CO2 27 mmol/L (21-32); CREATININE 0.9 mg/dL (0.55-1.3); GLUCOSE,RANDOM 160 mg/dL (74-106); SGOT/AST 81 U/L (15-37); SGPT/ALT 34 U/L (13-61); SODIUM 138 mmol/L (136-145); TOT PROT 7.9 g/dl (6.4-8.2)
[2018-11-08 22:05] LABS: ALBUMIN 3.8 g/dl (3.4-5.0); ALK PHOS 130 U/L (45-117); ANION GAP 8 MMOL/L (8-16); BILIRUBIN,TOTAL 0.3 mg/dL (0.2-1); BLOOD UREA NITROGEN 11 mg/dL (7-18); CALCIUM 9.1 mg/dL (8.5-10.1); CHLORIDE 106 mmol/L (98-107); CO2 28 mmol/L (21-32); CREATININE 0.6 mg/dL (0.55-1.3); GLUCOSE,RANDOM 147 mg/dL (74-106); POTASSIUM 4.1 mmol/L (3.5-5.1); SGOT/AST 17 U/L (15-37); SGPT/ALT 30 U/L (13-61); SODIUM 142 mmol/L (136-145); TOT PROT 7.1 g/dl (6.4-8.2)
--- NOTE | 2018-11-09 11:57 | EKG ---
Test Reason : Blood Pressure : / mmHG Vent. Rate : 060 BPM Atrial Rate : 060 BPM P-R Int : 152 ms QRS Dur : 084 ms QT Int : 386 ms P-R-T Axes : 033 011 039 degrees QTc Int : 386 ms NORMAL SINUS RHYTHM WITH SINUS ARRHYTHMIA NONSPECIFIC T WAVE ABNORMALITY ABNORMAL ECG WHEN COMPARED WITH ECG OF 15-OCT-2018 21:13, NONSPECIFIC T WAVE ABNORMALITY HAS REPLACED INVERTED T WAVES IN ANTERIOR LEADS Confirmed by OH CHANDLER, MAGUI ([id number]) on 11/09/2018 11:57:05 AM Referred By: Confirmed By:MAGUI CASIANO MD
== END 2018-11-08 22:36 | disposition home or self-care (01) ==
LOC: JER 18:44
PROC: 3E0337Z Introduction of Electrolytic and Water Balance Substance into Peripheral Vein, Percutaneous Approach (ICD-10-PCS; principal; 2018-11-08)
DX: E11.9 Type 2 diabetes mellitus without complications (principal); I10 Essential (primary) hypertension; G44.89 Other headache syndrome; Z79.01 Long term (current) use of anticoagulants
CPT/HCPCS: 36415; 70450-TC; 80053; 81003; 81015; 82436; 82550; 84133; 84300; 84484; 85025; 85610; 85730; 87086; 93005; 93010; 99282-25